=== PATIENT | female | born 1940 | race Caucasian/White ===

== ENCOUNTER → 2017-09-18 20:51 | Outpatient (REF) | payer MEDICARE, SELFPAY ==
[2017-09-18 20:57] LABS: Appearance Urine UA CLEAR; Bilirubin Urine UA NEGATIVE (NEGATIVE); Color Urine UA YELLOW; Glucose Urine UA NEGATIVE (Negative); Ketones Urine UA NEGATIVE (NEGATIVE); Leukocyte Esterase Urine UA 2+ (NEGATIVE); Nitrite Urine UA NEGATIVE (NEGATIVE); Occult Blood Urine UA 3+ (Negative); Protein Urine UA TRACE (Negative); Specific Gravity Urine UA 1.025 (1.000-1.035); Urobilinogen Urine UA 0.2 E.U./dL (0.2)
[2017-09-18 21:18] LABS: RBC Urine 5-10/HPF (0-5/HPF); Squamous Epithelial Cell Urine 0-1 /HPF; WBC Urine 1-5/HPF (0-5/HPF)
[2017-09-18 21:19] LABS: Bacteria Urine Moderate (10-30); Culture Indicated Urine Specimen Cultured
== END ==
LOC: LAB 20:51
PROVIDERS: PCP Family Medicine; Visit Provider Family Medicine
DX: R31.9 Hematuria, unspecified (principal)
CPT/HCPCS: 81001; 87086; 87186

== ENCOUNTER → 2017-10-07 14:57 | Outpatient (REF) | payer MEDICARE, SELFPAY ==
[2017-10-07 15:22] LABS: Appearance Urine UA OTHER; Bilirubin Urine UA NEGATIVE (NEGATIVE); Color Urine UA YELLOW; Glucose Urine UA NEGATIVE (Normal); Ketones Urine UA NEGATIVE (NEGATIVE); Leukocyte Esterase Urine UA TRACE (NEGATIVE); Nitrite Urine UA Negative (Negative); Occult Blood Urine UA 3+ (Negative); Protein Urine UA TRACE (Negative); Specific Gravity Urine UA 1.015 (1.000-1.035); Urobilinogen Urine UA 0.2 E.U./dL (0.2)
[2017-10-07 15:23] LABS: RBC Urine >100/HPF (0-5/HPF)
[2017-10-07 15:24] LABS: Bacteria Urine Few (2-10); Squamous Epithelial Cell Urine 1-5 /HPF; WBC Urine 1-5/HPF (0-5/HPF)
== END ==
LOC: LAB 14:57
PROVIDERS: PCP Family Medicine; Visit Provider Nurse Practitioner Family
DX: N39.0 Urinary tract infection, site not specified (principal); R35.0 Frequency of micturition
CPT/HCPCS: 81001; 87086

== ENCOUNTER → 2017-10-10 08:01 | Outpatient (CLI) | payer MEDICARE, SELFPAY ==
[2017-10-10 09:41] LABS: Add Manual Diff / Slide Review NO; Basophils Percent Auto 0.9 % (0-2); Eosinophils Percent Auto 2.4 % (2-4); Hematocrit 33.9 % (36-46); Lymphocytes Percent Auto 9.4 % (25-40); Mean Corpuscular HGB Conc 32.6 % (30-36); Mean Corpuscular Hemoglobin 26.6 PG (26-34); Mean Corpuscular Volume 81.5 fL (80-100); Monocytes Percent Auto 8.5 % (3-14); Neutrophils Absolute Auto 10000 /uL (3000-5900); Neutrophils Percent Auto 78.8 % (50-75); Platelet Count 331 X10^3/uL (150-400); Red Blood Cell Count 4.16 X10^6/uL (4.0-5.2); Red Cell Distribution Width 16.7 % (11.6-14.8); White Blood Cell Count 12.7 X10^3/uL (4.5-11.0)
[2017-10-10 10:39] LABS: BUN Creatinine Ratio 25.7 (6-22); Blood Urea Nitrogen 36 mg/dL (7-17); Calcium 8.9 mg/dL (8.4-10.2); Carbon Dioxide 27 mmol/L (22-32); Chloride 105 mmol/L (98-107); Estimated Glomerular Filt Rate 36.7 mL/min (>60); Glucose 91 mg/dL (80-110); HEMOLYSIS < 15 (0-50); Potassium 4.1 mmol/L (3.4-5.1); Sodium 143 mmol/L (137-145)
== END ==
PROVIDERS: PCP Family Medicine; Visit Provider Registered Nurse
DX: R31.9 Hematuria, unspecified (principal)
CPT/HCPCS: 36415; 80048; 85025

== ENCOUNTER → 2017-10-15 14:55 | Outpatient (CLI) | payer MEDICARE, SELFPAY ==
--- NOTE | 2017-10-15 | DI.US.S_ITS ---
PROCEDURE: US RENAL COMPLETE INDICATIONS: HEMATURIA TECHNIQUE: Real-time scanning was performed of the kidneys and bladder, with image documentation. COMPARISON: None. FINDINGS: Kidneys: Kidneys are normal in size. Right kidney measures 8.8 cm long; left kidney measures 9.8 cm long. Right renal cortical thickness is 1.3 cm; left renal cortical thickness is 1 point cm. Renal cortical echotexture is normal. No hydronephrosis or nephrolithiasis. Solid isoechoic mass involves the mid to lower pole of the right kidney measuring 5.2 x 4.2 x 4.8 cm. Internal vascularity noted with color flow Doppler.. Bladder: Pre-void bladder volume is 96 mL. Post-void residual is unable to be evaluated. Pre-void images demonstrate no intraluminal masses or stones. On pre-void images, right ureteral jets are noted with color Doppler interrogation. (Of note, ureteral jets may not be detectable in up to 25% of cases due to insufficient differences in specific gravity between ureteral and bladder urine). Miscellaneous: No free pelvic fluid. Cholelithiasis incidentally noted. IMPRESSION: 1. Solid right renal mass is suspicious for renal cell carcinoma. Contrast enhanced CT of the abdomen (renal protocol) is recommended for further evaluation. 2. Cholelithiasis. Dictated by: Td GONZALEZ Interpreted: Kolton Lombardi MD on 10/15/2017 at 15:59 Approved by: Kolton Lombardi M.D. on 10/15/2017 at 17:27
== END ==
PROVIDERS: PCP Family Medicine; Visit Provider Nurse Practitioner Family
DX: R31.9 Hematuria, unspecified (principal); N28.89 Other specified disorders of kidney and ureter
CPT/HCPCS: 76770

== ENCOUNTER → 2017-10-17 08:52 | Outpatient (REF) | payer MEDICARE, SELFPAY ==
[2017-10-17 09:12] LABS: Add Manual Diff / Slide Review NO; Basophils Percent Auto 0.7 % (0-2); Eosinophils Percent Auto 2.5 % (2-4); Hemoglobin 11.1 g/dL (12.0-16.0); Lymphocytes Percent Auto 17.7 % (25-40); Mean Corpuscular HGB Conc 32.7 % (30-36); Mean Corpuscular Hemoglobin 26.6 PG (26-34); Mean Corpuscular Volume 81.5 fL (80-100); Monocytes Percent Auto 7.4 % (3-14); Neutrophils Absolute Auto 7000 /uL (3000-5900); Neutrophils Percent Auto 71.7 % (50-75); Platelet Count 368 X10^3/uL (150-400); Red Blood Cell Count 4.17 X10^6/uL (4.0-5.2); Red Cell Distribution Width 16.5 % (11.6-14.8); White Blood Cell Count 9.7 X10^3/uL (4.5-11.0)
[2017-10-17 09:17] LABS: BUN Creatinine Ratio 32.2 (6-22); Blood Urea Nitrogen 29 mg/dL (7-17); Calcium 9.2 mg/dL (8.4-10.2); Carbon Dioxide 29 mmol/L (22-32); Chloride 106 mmol/L (98-107); Estimated Glomerular Filt Rate > 60.0 mL/min (>60); Glucose 90 mg/dL (80-110); HEMOLYSIS < 15 (0-50); Potassium 3.7 mmol/L (3.4-5.1); Sodium 145 mmol/L (137-145)
== END ==
LOC: LAB 08:52
PROVIDERS: PCP Family Medicine; Visit Provider Internal Medicine
DX: D72.0 Genetic anomalies of leukocytes (principal)
CPT/HCPCS: 36415; 80048; 85025

== ENCOUNTER → 2017-10-19 12:06 | Outpatient (CLI) | payer MEDICARE, SELFPAY ==
--- NOTE | 2017-10-19 | DI.CT.S_ITS ---
PROCEDURE: CT ABDOMEN PELVIS WO/W CON INDICATIONS: RENAL MASS TECHNIQUE: Optional 5 mm thick noncontrast images acquired from the diaphragm to the symphysis pubis. After the administration of intravenous contrast, 5 mm thick images acquired from the diaphragm to the symphysis pubis after a 10-minute delay. 2 mm thick coronal and sagittal reformats were then performed of the kidneys and ureters. For radiation dose reduction, the following was used: automated exposure control, adjustment of mA and/or kV according to patient size. COMPARISON: [facility], , US RENAL COMPLETE, 10/15/2017, 15:26. FINDINGS: Image quality: Excellent. Lung bases: Lung bases are clear. There are 2 adjacent 5 mm calcified granulomata in the left lower lobe. Heart size is normal. Urinary system: The left kidney contains 2 nonobstructing 5 mm calculi in the lower pole collecting system. Several small, partially exophytic nodular densities are present over the posterior margin of the left kidney, the largest measuring 7 mm in diameter on series 2/image 29, too small to characterize. No hydronephrosis. The right kidney contains a 0.7 x 1.9 cm nonobstructing calculus in the lower pole collecting system. Corresponding to the ultrasound finding, there is a large, heterogeneously enhancing mass with central calcification in the lower pole of the right kidney, highly suspect for renal cell carcinoma. The mass measures 4.5 x 5.7 x 5.9 cm. There is mild surrounding fat stranding. The right ring of vein is patent. No hydronephrosis. An 11 mm simple cyst is present at the intersection of the tumor and the lower pole of the right kidney. Other solid organs: Liver is normal in size and enhancement. Gallbladder is full of stones. Biliary system is non dilated. Pancreas enhances normally. Spleen is normal in size and enhancement. Bilateral indeterminate adrenal nodules, largest on the left at 1.1 cm showing noncontrast attenuation of 16. Peritoneum and bowel: Bowel loops demonstrate normal wall thickness and caliber. Surgical sutures are present in the right lower quadrant. Appendix is nonvisualized. No free fluid or air. Nodes and vessels: No retroperitoneal or mesenteric adenopathy by size criteria. Atheromatous aorta and inferior vena cava are normal in size. Abdominal wall: Ventral hernias containing fat and partial loops of bowel superior to the umbilicus. Pelvis: No pathologic free pelvic fluid. No inguinal hernias or adenopathy. Uterus shows apparent endometrial thickening at 16 mm, abnormal for postmenopausal status. Bones: No suspicious bony lesions. Degenerative disc disease L4-5 and L5-S1. Oval 12 mm sclerosis in the left iliac wing, likely bone island. No vertebral body compression fractures. IMPRESSION: 1. Large enhancing mass lower pole right kidney consistent with hypernephroma nearly 6 cm in maximum diameter. No apparent renal vein invasion or lymphadenopathy. 2. Bilateral nephrolithiasis right greater than left. Bilateral renal cysts, those on the left too small to characterize. 3. Cholelithiasis. 4. Apparent abnormal thickening of the endometrium which could represent endometrial hyperplasia or cancer. Recommend pelvic sonography for further evaluation. 5. Calcified granulomata left lower lobe, compatible with prior granulomatous infection. 6. Postoperative changes involving the right hemicolon, correlate with clinical history. 7. Bilateral adrenal nodules, indeterminate. 8. Several supraumbilical ventral hernias. Dictated by: Jonah Berry M.D. on 10/19/2017 at 13:10 Approved by: Jonah Berry M.D. on 10/19/2017 at 13:37
== END ==
PROVIDERS: PCP Family Medicine; Visit Provider Registered Nurse
DX: N20.0 Calculus of kidney (principal); K80.20 Calculus of gallbladder without cholecystitis without obstruction; N85.00 Endometrial hyperplasia, unspecified; K43.9 Ventral hernia without obstruction or gangrene
CPT/HCPCS: 74178; Q9967

== ENCOUNTER → 2017-10-26 10:28 | Outpatient (CLI) | payer MEDICARE, SELFPAY ==
--- NOTE | 2017-10-26 | DI.US.S_ITS ---
PROCEDURE: US PELVIC COMPLETE INDICATIONS: ENDOMETRIAL THICKENING TECHNIQUE: Real-time scanning was performed of the pelvic organs, with image documentation. Additional endovaginal scanning was necessary due to incomplete visualization of the adnexal and endometrial structures by transabdominal scanning. COMPARISON: None. FINDINGS: Transabdominal scanning: Limited scanning through the kidneys shows no hydronephrosis. No pathologic free abdominal or pelvic fluid. Endovaginal scanning: Uterus: Uterus is normal in size at 5.0 x 2.9 x 4.9 cm. The endometrium not well-visualized and cannot be evaluated. 2.1 x 1.7 x 2.1 cm submucosal fibroid. Ovaries: Ovaries not visualized. No adnexal masses seen. IMPRESSION: 2.1 cm submucosal fibroid. Endometrial complex cannot visualize and cannot be evaluated. Dictated by: Td PERALTA Interpreted: Shweta Aceves MD on 10/26/2017 at 13:12 Approved by: Shweta Aceves MD, PhD on 10/26/2017 at 15:51
== END ==
PROVIDERS: PCP Family Medicine; Visit Provider Nurse Practitioner Family
DX: D25.0 Submucous leiomyoma of uterus (principal); R93.8 Abnormal findings on diagnostic imaging of other specified body structures
CPT/HCPCS: 76830; 76856

== ENCOUNTER → 2017-10-30 11:03 | Outpatient (CLI) | payer MEDICARE, SELFPAY ==
[2017-10-30 11:40] LABS: Estimated Glomerular Filt Rate > 60.0 mL/min (>60)
== END ==
PROVIDERS: PCP Family Medicine; Visit Provider Physician Assistant
DX: Z01.812 Encounter for preprocedural laboratory examination (principal)
CPT/HCPCS: 36415; 82565

== ENCOUNTER → 2017-11-02 07:05 | Outpatient (CLI) | payer MEDICARE, SELFPAY ==
--- NOTE | 2017-11-02 | DI.MRI.S_ITS ---
PROCEDURE: MR STROKE Pre- and post-contrast brain MRI, non-contrast brain MR angiogram, pre- and postcontrast neck MR angiogram INDICATIONS: history of cva TECHNIQUE: Brain: Noncontrast axial T1 spin echo, axial T2 fast spin echo, sagittal and axial FLAIR, coronal T2 fast spin echo, axial gradient echo, axial diffusion and ADC through the brain. After the administration of contrast, axial 3D VIBE of the cranial vasculature and brain. Brain MRA: Non-contrast 3-D time of flight MR angiogram, with multiple ymdzhfp-hzdfanlhu-mohbfufeth (MIP) reformats performed. Neck MRA: Axial and sagittal TruFISP through the neck. Coronal dynamic MR angiogram during administration of contrast in the arterial and venous phases, with 3-dimenstional aayhngj-kjqhdagkf-dznokxyffa (MIP) reformats constructed from subtraction images. COMPARISON: None. FINDINGS: Image quality: Excellent. BRAIN: CSF spaces: Ventricles are normal in size and shape. Basal cisterns are patent. No extra-axial fluid collections. Brain: No intracranial bleeds or mass effects. Large chronic appearing right frontal encephalomalacia. Tanner-white matter interface is normal. Diffusion weighted images show no acute ischemic insults. Brainstem appears normal. Normal intravascular flow voids are present. No abnormal intracranial enhancement. Skull and face: Calvarial marrow signal is normal. Orbits appear normal. Sinuses: Sinuses and mastoids are clear. BRAIN MR ANGIOGRAM: Anterior circulation: Intracranial internal carotid arteries are normal in size and enhancement. The flow within the paired anterior cerebral arteries is normal and symmetric. Bilateral atherosclerotic long segment narrowing of the distal M1 segments of the middle cerebral arteries. On the contrast-enhanced images these appear grossly patent without definite occlusion. Posterior circulation: The visualized portions of the vertebral arteries demonstrate normal caliber, and join to form a normal appearing basilar artery. origin of the left posterior cerebral artery although this is only well-seen on the contrast-enhanced source images. The flow within the posterior cerebral arteries is normal and symmetric. No stenoses, occlusions, or aneurysms. NECK MR ANGIOGRAM: Carotids: Great vessels demonstrate a conventional anatomy as they arise from the aortic arch. The origins of the common carotid arteries appear patent. The calibers and courses of both common carotid arteries are normal. The bifurcation regions appear normal bilaterally. The internal carotid arteries demonstrate normal course and caliber. Posterior circulation: High-grade focal narrowing at the origin of the right vertebral artery. The left vertebral artery origin appears patent. There is a dominant left vertebral artery. More superior portions of both vertebral arteries demonstrate normal course and caliber, and join to form a normal appearing basilar artery. Miscellaneous: Subclavian arteries appear patent. Pre-contrast images through the neck show no soft tissue abnormalities. No IMPRESSION: BRAIN MRI: No evidence of acute ischemia. Chronic appearing right frontal lobe encephalomalacia. BRAIN MR ANGIOGRAM: Long segment atherosclerotic narrowing of the distal M1 segments of middle cerebral arteries bilaterally. No definite occlusion. NECK MR ANGIOGRAM: No ICA stenosis. High-grade approximately 90% focal stenosis at the origin of the right vertebral artery. Dominant left vertebral artery Dictated by: Salas Bronson M.D. on 11/02/2017 at 11:47 Approved by: Salas Bronson M.D. on 11/02/2017 at 11:58
== END ==
PROVIDERS: Family Provider Family Medicine; PCP Family Medicine; Visit Provider Physician Assistant
DX: I65.01 Occlusion and stenosis of right vertebral artery (principal); Z86.73 Personal history of transient ischemic attack (TIA), and cerebral infarction without residual deficits; G93.89 Other specified disorders of brain
CPT/HCPCS: 70553; A9579

== ENCOUNTER → 2017-11-04 14:31 | Outpatient (REF) | payer MEDICARE, SELFPAY ==
[2017-11-04 14:47] LABS: Appearance Urine UA CLEAR; Bilirubin Urine UA NEGATIVE (NEGATIVE); Color Urine UA YELLOW; Glucose Urine UA NEGATIVE (Normal); Ketones Urine UA NEGATIVE (NEGATIVE); Leukocyte Esterase Urine UA 1+ (NEGATIVE); Nitrite Urine UA Negative (Negative); Occult Blood Urine UA 2+ (Negative); Protein Urine UA NEGATIVE (Negative); Urobilinogen Urine UA 0.2 E.U./dL (0.2)
[2017-11-04 14:58] LABS: RBC Urine 0-1/HPF (0-5/HPF); WBC Urine 10-30/HPF (0-5/HPF)
[2017-11-04 14:59] LABS: Bacteria Urine Few (2-10); Culture Indicated Urine Specimen Cultured; Squamous Epithelial Cell Urine 1-5 /HPF; Transitional Epi Cells Urine 1-5/HPF (0-5/HPF)
== END ==
LOC: LAB 14:31
PROVIDERS: Family Provider Family Medicine; PCP Family Medicine; Visit Provider Internal Medicine
DX: R41.0 Disorientation, unspecified (principal); R35.0 Frequency of micturition
CPT/HCPCS: 81001; 87086

== ENCOUNTER → 2017-12-19 08:03 | Outpatient (REF) | payer MEDICARE, SELFPAY ==
[2017-12-19 08:32] LABS: Add Manual Diff / Slide Review NO; Basophils Percent Auto 0.6 % (0-2); Eosinophils Percent Auto 3.7 % (2-4); Hematocrit 34.1 % (36-46); Hemoglobin 11.3 g/dL (12.0-16.0); Lymphocytes Percent Auto 19.6 % (25-40); Mean Corpuscular Hemoglobin 27.3 PG (26-34); Mean Corpuscular Volume 82.5 fL (80-100); Monocytes Percent Auto 9.1 % (3-14); Neutrophils Absolute Auto 5300 /uL (3000-5900); Platelet Count 307 X10^3/uL (150-400); Red Blood Cell Count 4.13 X10^6/uL (4.0-5.2); Red Cell Distribution Width 16.8 % (11.6-14.8); White Blood Cell Count 7.9 X10^3/uL (4.5-11.0)
[2017-12-19 08:41] LABS: Hemoglobin A1C% w Est Avg Glu 5.7 % (4.0-6.0)
[2017-12-19 08:57] LABS: Blood Urea Nitrogen 28 mg/dL (7-17); Calcium 9.3 mg/dL (8.4-10.2); Carbon Dioxide 27 mmol/L (22-32); Chloride 105 mmol/L (98-107); Estimated Glomerular Filt Rate > 60.0 mL/min (>60); Glucose 89 mg/dL (80-110); HEMOLYSIS < 15 (0-50); Potassium 4.4 mmol/L (3.4-5.1); Sodium 140 mmol/L (137-145)
[2017-12-19 09:07] LABS: Vitamin D 25 Hydroxy (D3) 25.8 ng/mL (30.0-100.0)
[2017-12-19 09:36] LABS: Vitamin B12 964 pg/mL (239-931)
== END ==
LOC: LAB 08:03
PROVIDERS: Family Provider Family Medicine; PCP Family Medicine; Visit Provider Nurse Practitioner Family
DX: D64.9 Anemia, unspecified (principal); E11.9 Type 2 diabetes mellitus without complications; F03.90 Unspecified dementia, unspecified severity, without behavioral disturbance, psychotic disturbance, mood disturbance, and anxiety
CPT/HCPCS: 36415; 80048; 82306; 82607; 83036; 85025

== ENCOUNTER 2017-12-24 07:31 | Emergency (ER) | payer MEDICARE, SELFPAY ==
--- NOTE | 2017-12-24 07:53 | ED_ITS ---
HPI - Neuro Symptoms/Deficit General Chief Complaint: Neuro Symptoms/Deficit Stated Complaint: SEIZURE OR POTENTIAL STROKE Time Seen by Provider: 12/24/17 07:41 Source: patient and family Mode of arrival: wheelchair Limitations: no limitations History of Present Illness HPI Narrative: Patient is a 77-year-old female who presents with her son with possible seizure. She does have a history of a CVA in February 2017 for which she did receive tPA for. Today he walks as he said her face scrunched up and her eyes fluttered rapidly for 1-2 minutes. During that time she was unresponsive. There is no other shaking. Symptoms now have completely resolved. She the was previously in [place] but since the stroke has moved here. 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 She was worked up for seizures they did not find any. She does take aspirin of 325 daily. Onset (ago): minute(s) Related Data Home Medications Medication Instructions Recorded Confirmed Lactobacillus acidophilus 2 tab PO TID #0 06/25/17 docusate sodium [DOK] 200 mg PO QDAY #0 06/25/17 famotidine 20 mg PO QDAY #0 06/25/17 vancomycin [Vancocin] 250 mg PO TID #0 06/25/17 Previous Rx's Medication Instructions Recorded VITAMIN B12 See Label Instructions PO .COMPLEX 08/28/17 #30 acetaminophen 325 mg capsule 650 mg PO Q4H PRN #60 cap 08/28/17 escitalopram 5 mg tablet 5 mg PO DAILY #30 tab 08/28/17 sulfamethoxazole 800 1 tab PO BID #14 tab 09/21/17 mg-trimethoprim 160 mg tablet amlodipine 2.5 mg tablet 2.5 mg PO QDAY #30 tab 11/15/17 aspirin 325 mg tablet 325 mg PO QDAY #30 tab 11/15/17 atorvastatin 20 mg tablet 20 mg PO QPM #30 tab 11/15/17 carvedilol 3.125 mg tablet 3.125 mg PO BID #60 tab 11/15/17 cholecalciferol (vitamin D3) 2,000 2,000 unit PO DAILY #30 cap 12/20/17 unit capsule levetiracetam [Keppra] 500 mg PO BID #60 tab 12/24/17 Allergies Allergy/AdvReac Type Severity Reaction Status Date / Time No Known Drug Allergies Allergy Verified 12/24/17 07:48 Review of Systems Review of Systems All systems reviewed & are unremarkable except as noted in HPI and below Constitutional Denies chills, Denies fever(s), Denies lethargy and Denies weakness Cardiovascular Denies chest pain, Denies irregular heart rhythm, Denies lightheadedness, Denies palpitations, Denies dyspnea, Denies dyspnea on exertion and Denies orthopnea Respiratory Denies cough, Denies dyspnea, Denies dyspnea on exertion and Denies wheezing Gastrointestinal Gastrointestinal: Denies abdominal pain, Denies change in bowel habits, Denies diarrhea, Denies nausea and Denies vomiting Neurologic Reports system reviewed and no additional complaints, except as docu and Denies weakness Endocrine Denies palpitations Allergic/Immunologic Denies wheezing PFSH Medical History CVA (cerebral vascular accident) (Acute) Dementia (Acute) Hypertension (Acute) Surgical History Status post colectomy Family History Brother Diabetes mellitus Heart disease Hypertension Father Heart disease Hypertension Mother Diabetes mellitus Stroke Exam Initial Vital Signs Initial Vital Signs: Vital Signs Temperature 98.2 F 12/24/17 08:06 Pulse Rate 62 12/24/17 08:06 Respiratory Rate 16 12/24/17 08:06 Blood Pressure 186/66 H 12/24/17 08:06 Pulse Oximetry 100 12/24/17 08:06 GENERAL: Alert well-appearing elderly female HEENT: Head atraumatic,EOMI, pupils reactive, left-sided facial droop, neck is supple no JVD CARDIOVASCULAR: Regular rate and rhythm without murmurs, rubs or gallops. RESPIRATORY: Breath sounds equal bilaterally, no wheezes rales or rhonchi. ABDOMEN: Soft, nontender. Normoactive bowel sounds all 4 quadrants. No guarding or rebound. : No CVA tenderness EXTREMITIES: Normal range of motion, no clubbing or edema. Neurovascularly intact NEUROLOGICAL: Alert and oriented x4.Normal gait and speech. Cranial nerves II through XII grossly intact. Good amrsrc-ak-pawf, good kcio-hl-tttj, strength equal bilaterally, no dysarthria or aphasia, sensation in tact to soft touch bilaterally, no visual changes, no facial droop SKIN: Warm, dry, no laceration, no petechiae, no rashes or lesions. Scores NIH Stroke Scale Level of Conciousness: Alert, keenly responsive Ask month/age: Answers neither question correctly, aphasic, stuporous, coma Open/close eyes, close hand: Performs both tasks correctly Best gaze horizontal: Normal Visual valenzuela: No visual loss Facial palsy: Partial paralysis, total or near total paralysis of lower face ( unchanged) Left arm drift: No drift for full 10 sec Right arm drift: No drift for full 10 sec Left leg drift: No drift for full 10 sec Right leg drift: No drift for full 10 sec Limb ataxia: Absent Sensory on face/arms/legs: Normal, no sensory loss Best language: No aphasia, normal Dysarthria: Normal Extinction or inattention: No abnormality Total NIH Stroke scale score: 4 Course Orders Ordered: ED Orders 12/24/17 07:41 Urine Drug Screen, Rapid Stat EKG-12 Lead Stat 12/24/17 07:55 Complete Blood Count AUTO DIFF Stat Comprehensive Metabolic Panel Stat Creatine Kinase MB Urgent Partial Thromboplastin Time Stat Prolactin Stat Prothrombin Time INR Stat Troponin I Stat 12/24/17 08:18 CT head/brain wo con Stat Discontinued Medications Sodium Chloride (Normal Saline 0.9%) 1,000 mls @ 150 mls/hr IV CONT LUIS ENRIQUE Last Infusion: 12/24/17 11:09 Dose: 150 mls/hr Admin: 12/24/17 08:17 Dose: 150 mls/hr Levetiracetam (Keppra) 500 mg PO NOW ONE Stop: 12/24/17 08:58 Last Admin: 12/24/17 09:20 Dose: 500 mg Lorazepam (Ativan) 0.5 mg IV NOW ONE Stop: 12/24/17 09:26 Last Admin: 12/24/17 09:27 Dose: 0.5 mg Consultations Consultation #1: Dr. gibson, patient's neurologist has been updated on symptoms test results. Recommend starting on Keppra 500 twice a day. Time: 09:06 Vital Signs - 8 hr 12/24/17 08:06 12/24/17 08:23 12/24/17 09:29 Temperature 98.2 F 98.2 F 98.3 F Pulse Rate 62 54 L 55 L Respiratory Rate 16 20 13 Blood Pressure 186/66 H Blood Pressure [Left Arm] 158/77 H 162/63 H Pulse Oximetry 100 98 97 12/24/17 10:00 12/24/17 10:49 12/24/17 11:11 Temperature 98.2 F Pulse Rate 57 L 54 L 56 L Respiratory Rate 18 16 16 Blood Pressure Blood Pressure [Left Arm] 156/62 H 154/67 H 154/67 H Pulse Oximetry 94 100 98 MDM - Neuro Symptoms/Deficit Lab Data Result diagrams: 12/24/17 07:55 12/24/17 07:55 Lab Results 12/24/17 12/24/17 12/24/17 Range/Units 07:55 07:55 07:55 WBC 9.5 (4.5-11.0) X10^3/uL RBC 4.27 (4.0-5.2) X10^6/uL Hgb 11.6 L (12.0-16.0) g/dL Hct 35.3 L (36-46) % MCV 82.5 (80-100) fL MCH 27.1 (26-34) PG MCHC 32.8 (30-36) % RDW 16.1 H (11.6-14.8) % Plt Count 320 (150-400) X10^3/uL Neut % (Auto) 69.0 (50-75) % Lymph % (Auto) 18.1 L (25-40) % Dare % (Auto) 8.7 (3-14) % Eos % (Auto) 3.0 (2-4) % Baso % (Auto) 1.2 (0-2) % Neut # (Auto) 6600 H (3506-0982) /uL PT 12.1 (10.1-12.7) SECONDS INR 1.1 (0.9-1.3) APTT 28 (26.4-36.2) SECONDS Sodium 145 (137-145) mmol/L Potassium 4.6 (3.4-5.1) mmol/L Chloride 105 (98-107) mmol/L Carbon Dioxide 33 H (22-32) mmol/L BUN 28 H (7-17) mg/dL Creatinine 0.80 (0.52-1.04) mg/dL Estimated GFR > 60.0 (>60) mL/min BUN/Creatinine Ratio 35.0 H (6-22) Glucose 95 (80-110) mg/dL Calcium 9.4 (8.4-10.2) mg/dL Total Bilirubin 0.5 (0.2-1.3) mg/dL AST 24 (14-36) IU/L ALT 27 (9-52) IU/L Alkaline Phosphatase 81 (38-126) U/L Troponin I 0.022 (0.01-0.034) ng/mL Total Protein 7.4 (6.3-8.2) g/dL Albumin 3.9 (3.5-5.0) g/dL Globulin 3.5 (1.7-4.1) g/dL Albumin/Globulin Ratio 1.1 (1.0-2.8) Prolactin (3.0-18.6) ng/mL 12/24/17 Range/Units 07:55 WBC (4.5-11.0) X10^3/uL RBC (4.0-5.2) X10^6/uL Hgb (12.0-16.0) g/dL Hct (36-46) % MCV (80-100) fL MCH (26-34) PG MCHC (30-36) % RDW (11.6-14.8) % Plt Count (150-400) X10^3/uL Neut % (Auto) (50-75) % Lymph % (Auto) (25-40) % Dare % (Auto) (3-14) % Eos % (Auto) (2-4) % Baso % (Auto) (0-2) % Neut # (Auto) (7402-4860) /uL PT (10.1-12.7) SECONDS INR (0.9-1.3) APTT (26.4-36.2) SECONDS Sodium (137-145) mmol/L Potassium (3.4-5.1) mmol/L Chloride (98-107) mmol/L Carbon Dioxide (22-32) mmol/L BUN (7-17) mg/dL Creatinine (0.52-1.04) mg/dL Estimated GFR (>60) mL/min BUN/Creatinine Ratio (6-22) Glucose (80-110) mg/dL Calcium (8.4-10.2) mg/dL Total Bilirubin (0.2-1.3) mg/dL AST (14-36) IU/L ALT (9-52) IU/L Alkaline Phosphatase (38-126) U/L Troponin I (0.01-0.034) ng/mL Total Protein (6.3-8.2) g/dL Albumin (3.5-5.0) g/dL Globulin (1.7-4.1) g/dL Albumin/Globulin Ratio (1.0-2.8) Prolactin 29.6 H (3.0-18.6) ng/mL MDM Narrative Medical decision making narrative: Patient had an episode on in the ED with facial twitching. This lasted briefly 1-2 minutes. She was given 0.5 of Ativan. This was prior to her Keppra dose. She was given Keppra and monitored. No further seizure-like activity. She has a neurologist whom I have been in contact with and will follow up. Keppra medication has been faxed to pharmacy and she will receive her 2nd dose this evening at the assisted living. Discharge Plan Departure Patient Disposition: Assisted Living Clinical Impression: Seizure Discharge Date/Time: 12/24/17 11:12 Interventions: ED Discharge Assessment Last Done: 12/24/17 11:12 Instructions: Seizure Disorder -- Adult Activity Restrictions/Additional Instructions: NO DRIVING *You have been diagnosed with likely had a seizure episode today *What to do: Will need to follow up with Neurology in 1 week *Continue to take medications as directed Keppra 500 mg twice a day--Faxed to [facility] in [place] *Follow up with your primary care provider in 2-3 days, call Neurology to schedule appointment *Return to ER if you should have recurrent seizures, it decreasing mental status , weakness or any new, worsening or concerning symptoms Prescriptions: New levetiracetam [Keppra] 500 mg tablet 500 mg PO BID Qty: 60 RF: 0 No Action vancomycin [Vancocin] 250 MG capsule 250 mg PO TID Qty: 0 RF: 0 famotidine 20 MG tablet 20 mg PO QDAY Qty: 0 RF: 0 Lactobacillus acidophilus 1 EACH capsule 2 tab PO TID Qty: 0 RF: 0 docusate sodium [DOK] 100 MG tablet 200 mg PO QDAY Qty: 0 RF: 0 escitalopram oxalate [Lexapro] 5 mg tablet 5 mg PO DAILY Qty: 30 RF: 3 VITAMIN B12 tablet See Label Instructions PO .COMPLEX Qty: 30 RF: 3 acetaminophen 325 mg capsule 650 mg PO Q4H PRN (Reason: fever or pain) Qty: 60 RF: 3 sulfamethoxazole-trimethoprim [Bactrim DS] 800-160 mg tablet 1 tab PO BID Qty: 14 RF: 0 aspirin 325 mg tablet 325 mg PO QDAY Qty: 30 RF: 3 atorvastatin [Lipitor] 20 mg tablet 20 mg PO QPM Qty: 30 RF: 3 carvedilol [Coreg] 3.125 mg tablet 3.125 mg PO BID Qty: 60 RF: 3 amlodipine [Norvasc] 2.5 mg tablet 2.5 mg PO QDAY Qty: 30 RF: 3 cholecalciferol (vitamin D3) 2,000 unit capsule 2,000 unit PO DAILY Qty: 30 RF: 3
[2017-12-24 08:04] LABS: Add Manual Diff / Slide Review NO; Basophils Percent Auto 1.2 % (0-2); Hematocrit 35.3 % (36-46); Hemoglobin 11.6 g/dL (12.0-16.0); Lymphocytes Percent Auto 18.1 % (25-40); Mean Corpuscular HGB Conc 32.8 % (30-36); Mean Corpuscular Hemoglobin 27.1 PG (26-34); Mean Corpuscular Volume 82.5 fL (80-100); Monocytes Percent Auto 8.7 % (3-14); Neutrophils Absolute Auto 6600 /uL (3000-5900); Platelet Count 320 X10^3/uL (150-400); Red Blood Cell Count 4.27 X10^6/uL (4.0-5.2); Red Cell Distribution Width 16.1 % (11.6-14.8); White Blood Cell Count 9.5 X10^3/uL (4.5-11.0)
[2017-12-24 08:06] VITALS: BP 186/66; PULSE 62; RESP 16; TEMP 36.8; O2SAT 100
[2017-12-24] MEDS: SODIUM CHLORIDE 0.9% 1,000 ML 150 ML IV (08:17)
--- NOTE | 2017-12-24 08:18 | DI.CT.S_ITS ---
PROCEDURE: CT HEAD/BRAIN WO CON INDICATIONS: weakness, now resolved, hx of prior cva with MRI documenting stroke at the right temporoparietal region 11/02/17 which was not acute at that time. TECHNIQUE: Noncontrast 4.5 mm thick angled axial sections acquired from the foramen magnum to the vertex, with coronal and sagittal reformats. For radiation dose reduction, the following was used: automated exposure control, adjustment of mA and/or kV according to patient size. COMPARISON: [facility], , MR STROKE, 11/02/2017, 8:30. FINDINGS: Image quality: Excellent. CSF spaces: Basal cisterns are patent. No extra-axial fluid collections. Ventricles are asymmetric in size and shape related to encephalomalacia from the evolving stroke at the right temporoparietal region extending into the frontal lobe margin laterally. No new stroke is found. Brain: No midline shift. No intracranial masses or hemorrhage. Tanner-white matter interface is normal. Skull and face: Calvarium and visualized facial bones are intact, without suspicious lesions. Sinuses: Visualized sinuses and mastoids are clear. IMPRESSION: No new stroke is identified. Evolution of a previously present area of encephalomalacia measuring up to 6 cm craniocaudad, 4 cm transverse and approximately 5 cm AP present on prior MRI from October of this year. The stroke did not appear acute in October, and presumably there are prior imaging studies from the acute/subacute phase. No intracranial hemorrhage. Source of new symptoms is not found. Dictated by: Hipolito Haider M.D. on 12/24/2017 at 8:25 Approved by: Hipolito Haider M.D. on 12/24/2017 at 8:29
[2017-12-24 08:20] LABS: INR 1.1 (0.9-1.3); Prothrombin Time 12.1 SECONDS (10.1-12.7)
[2017-12-24 08:23] VITALS: BP 158/77; PULSE 54; RESP 20; TEMP 36.8; O2SAT 98
[2017-12-24 08:23] LABS: PTT Partial Thromboplastin Tim 28 SECONDS (26.4-36.2)
[2017-12-24 08:24] LABS: Alanine Aminotransferase 27 IU/L (9-52); Albumin 3.9 g/dL (3.5-5.0); Albumin Globulin Ratio 1.1 (1.0-2.8); Alkaline Phosphatase 81 U/L (38-126); Aspartate Aminotransferase 24 IU/L (14-36); Bilirubin Total 0.5 mg/dL (0.2-1.3); Blood Urea Nitrogen 28 mg/dL (7-17); Calcium 9.4 mg/dL (8.4-10.2); Carbon Dioxide 33 mmol/L (22-32); Chloride 105 mmol/L (98-107); Estimated Glomerular Filt Rate > 60.0 mL/min (>60); Globulin 3.5 g/dL (1.7-4.1); Glucose 95 mg/dL (80-110); HEMOLYSIS < 15 (0-50); Potassium 4.6 mmol/L (3.4-5.1); Sodium 145 mmol/L (137-145); Total Protein 7.4 g/dL (6.3-8.2)
[2017-12-24 08:36] LABS: Troponin I 0.022 ng/mL (0.01-0.034)
[2017-12-24 08:41] LABS: Prolactin 29.6 ng/mL (3.0-18.6)
--- NOTE | 2017-12-24 08:43 | PC.NURSE ---
0731/ no code stroke called per provider.
[2017-12-24] MEDS: levETIRAcetam 250 MG TABLET 500 MG PO (09:20)
--- NOTE | 2017-12-24 09:23 | PC.NURSE ---
entered room to check on pt. Pt having seizure like activity in face. Face drooping and mild shaking in face. MD made aware and came to bedside. Activity lasting approx. 60 seconds. Pt is confused but cooperative and able to follow all commands and has returned to baseline. Son at bedside with pt encouraging her to rest.
[2017-12-24] MEDS: LORazepam 2 MG/ML SYRINGE 0.5 MG IV (09:27)
[2017-12-24 09:29] VITALS: BP 162/63; PULSE 55; RESP 13; TEMP 36.8; O2SAT 97
[2017-12-24 10:00] VITALS: BP 156/62; PULSE 57; RESP 18; O2SAT 94
[2017-12-24 10:49] VITALS: BP 154/67; PULSE 54; RESP 16; O2SAT 100
[2017-12-24 11:11] VITALS: BP 154/67; PULSE 56; RESP 16; TEMP 36.8; O2SAT 98
== END 2017-12-24 11:12 ==
PROVIDERS: Emergency Provider Emergency Medicine; Family Provider Family Medicine; PCP Family Medicine
DX: R56.9 Unspecified convulsions (principal)
CPT/HCPCS: 36591; 70450; 80053; 82553; 82962; 84146; 84484; 85025; 85610; 85730; 93005; 93010; 96361; 96374; 99284; 99285; 99291; J2060

== ENCOUNTER 2017-12-26 03:39 | Emergency (ER) | payer MEDICARE, SELFPAY ==
--- NOTE | 2017-12-26 04:02 | ED_ITS ---
HPI - Chest Pain General Chief Complaint: Chest Pain Stated Complaint: Chest Pain Time Seen by Provider: 12/26/17 03:45 Source: family Mode of arrival: ambulatory Limitations: no limitations History of Present Illness HPI narrative: The patient was brought to the emergency department from her care facility after being found to poke her chest and say ow. Patient is a poor historian, secondary to dementia, and it is not clear exactly what she was feeling. According to son, patient has not been indicating any chest pain while he has been here. Son denies any decline in mental status the patient's part. Patient has been seen multiple times recently for various issues. She has not had any fever or cough. No obvious shortness of breath. No vomiting. No falls or other trauma. MD complaint: chest pain Onset (ago): minute(s) Duration: other ( Unknown duration; now appears to have resolved.) Onset: during rest Pain location: left chest Severity: moderate ( Uncertain of exact severity. Patient is not able to use the pain scale.) Quality: other ( Unable to specify.) Pain radiation: other ( Unable to specify.) Relieving factors: other ( Unable to specify.) Exacerbating factors: other ( Unable to specify.) Context: other ( No recent illness, recent surgery, recent immobilization, recent travel, recent trauma, or history of DVT /PE.) Associated symptoms: other ( Patient has had no other complaints.) Treatments prior to arrival chest pain: none Related Data Home Medications Medication Instructions Recorded Confirmed Lactobacillus acidophilus 2 tab PO TID #0 06/25/17 docusate sodium [DOK] 200 mg PO QDAY #0 06/25/17 famotidine 20 mg PO QDAY #0 06/25/17 vancomycin [Vancocin] 250 mg PO TID #0 06/25/17 Previous Rx's Medication Instructions Recorded VITAMIN B12 See Label Instructions PO .COMPLEX 08/28/17 #30 acetaminophen 325 mg capsule 650 mg PO Q4H PRN #60 cap 08/28/17 escitalopram 5 mg tablet 5 mg PO DAILY #30 tab 08/28/17 sulfamethoxazole 800 1 tab PO BID #14 tab 09/21/17 mg-trimethoprim 160 mg tablet amlodipine 2.5 mg tablet 2.5 mg PO QDAY #30 tab 11/15/17 aspirin 325 mg tablet 325 mg PO QDAY #30 tab 11/15/17 atorvastatin 20 mg tablet 20 mg PO QPM #30 tab 11/15/17 carvedilol 3.125 mg tablet 3.125 mg PO BID #60 tab 11/15/17 cholecalciferol (vitamin D3) 2,000 2,000 unit PO DAILY #30 cap 12/20/17 unit capsule levetiracetam [Keppra] 500 mg PO BID #60 tab 12/24/17 lacosamide [Vimpat] 100 mg PO BID #60 tab 01/02/18 Allergies Allergy/AdvReac Type Severity Reaction Status Date / Time No Known Drug Allergies Allergy Verified 12/24/17 07:48 Review of Systems Review of Systems unobtainable due to mental condition ( Dementia) [facility] Medical History CVA (cerebral vascular accident) (Acute) Dementia (Acute) Hypertension (Acute) Comment: no smoking alcohol or drugs. Exam Initial Vital Signs Initial Vital Signs: Vital Signs Temperature 98.1 F 12/26/17 04:16 Pulse Rate 57 L 12/26/17 04:16 Respiratory Rate 17 12/26/17 04:16 Blood Pressure 150/69 H 12/26/17 04:16 Pulse Oximetry 98 12/26/17 04:16 Const General: cooperative and well developed Nutritional Appearance: well nourished Orientation: alert, awake and not confused [facility] Head: normocephalic and atraumatic Ears: external ears normal Nose: external nose normal and No nasal discharge Face and sinus: face symmetric and No dry mucous membranes Mouth: oral mucosae normal and moist mucous membranes Eyes General: appearance normal, both eyes and all related structures Eyelids: eyelids normal Conjunctivae: conjunctivae normal Sclera: sclerae normal Pupils: PERRL EOM: EOM intact bilaterally Neck Neck: normal visual inspection, trachea midline, No lymphadenopathy, No midline deformity and No JVD Lymphatic: No lymphedema Chest Chest: normal inspection of the chest Resp Effort & Inspection: normal respiratory effort, able to speak in complete sentences, no respiratory distress and no use of accessory muscles Auscultation: clear to auscultation bilaterally, no rales, no rhonchi and no wheezes Cardio Rate: regular rate Rhythm: regular rhythm Heart Sounds: no click, no gallops, no murmurs and no rubs Pulses: normal peripheral pulses GI Inspection: non-distended Palpation: soft, no hepatosplenomegaly, No guarding, No pulsatile mass and No tender Auscultation: normal bowel sounds Back/Spine/Pelvis Back: No CVA tenderness Cervical Spine: cervical ROM normal and No pain with cervical ROM Thoracic/Lumbar Spine: thoracic and lumbar spine normal to inspection Skin General: no rashes or lesions noted, No jaundice and No petechiae Neuro General: alert, awake and no focal motor deficits Speech: speech normal Motor: other ( Moves all 4 extremities equally) Sensory Exam: no sensory deficits noted Extrem General: full ROM, no clubbing, cyanosis or edema, no pedal edema and no calf tenderness Psych Appearance: well kempt Mental Status: mental status grossly normal Attitude: cooperative Thought Content: normal and suicidality Judgment: judgment good Course Hospital Course: I discussed with the son that it is difficult to know exactly what the patient is feeling or was feeling, and that even with workup, we may not know. We have discussed the potential serious causes of pain though most of these I feel are unlikely based on the presentation and the patient's well appearance and stable vital signs. EKG was done per protocol upon patient's arrival, and was unremarkable. Son stated he would prefer that we keep the workup to just an EKG and chest x-ray. Chest x-ray was done and found to be unremarkable for acute pathology, as well. I did feel the patient was stable for discharge home the complaints of chest pain the son is comfortable with this plan. We have discussed the the usual indications for return. Orders Ordered: ED Orders 12/26/17 EKG-12 Lead Routine MDM - Chest Pain Medical Records Data Attestation: I reviewed the patient's medical records. ECG Data Attestation: I personally reviewed and interpreted this ECG as follows: ( No acute abnormalities. No STEMI.) Discharge Plan Departure Patient Disposition: Home Clinical Impression: Chest wall pain Discharge Date/Time: 12/26/17 04:51 Interventions: ED Discharge Assessment Last Done: 12/26/17 04:51 Instructions: DI for Atypical Chest Pain Activity Restrictions/Additional Instructions: Neither the EKG nor the chest x-ray show acute abnormalities. Janey's chest pain is most likely coming from the wall of her chest, and as such, will pass on its own without intervention. If she develops congested cough, fever, or shortness of breath, please have her re-evaluated. Prescriptions: No Action vancomycin [Vancocin] 250 MG capsule 250 mg PO TID Qty: 0 RF: 0 famotidine 20 MG tablet 20 mg PO QDAY Qty: 0 RF: 0 Lactobacillus acidophilus 1 EACH capsule 2 tab PO TID Qty: 0 RF: 0 docusate sodium [DOK] 100 MG tablet 200 mg PO QDAY Qty: 0 RF: 0 escitalopram oxalate [Lexapro] 5 mg tablet 5 mg PO DAILY Qty: 30 RF: 3 VITAMIN B12 tablet See Label Instructions PO .COMPLEX Qty: 30 RF: 3 acetaminophen 325 mg capsule 650 mg PO Q4H PRN (Reason: fever or pain) Qty: 60 RF: 3 sulfamethoxazole-trimethoprim [Bactrim DS] 800-160 mg tablet 1 tab PO BID Qty: 14 RF: 0 aspirin 325 mg tablet 325 mg PO QDAY Qty: 30 RF: 3 atorvastatin [Lipitor] 20 mg tablet 20 mg PO QPM Qty: 30 RF: 3 carvedilol [Coreg] 3.125 mg tablet 3.125 mg PO BID Qty: 60 RF: 3 amlodipine [Norvasc] 2.5 mg tablet 2.5 mg PO QDAY Qty: 30 RF: 3 cholecalciferol (vitamin D3) 2,000 unit capsule 2,000 unit PO DAILY Qty: 30 RF: 3 levetiracetam [Keppra] 500 mg tablet 500 mg PO BID Qty: 60 RF: 0 lacosamide [Vimpat] 100 mg tablet 100 mg PO BID Qty: 60 RF: 0 Referrals: Enoc,Shirley, [Primary Care Provider] - (Please follow up, as needed.)
--- NOTE | 2017-12-26 04:13 | DI.RAD.S_ITS ---
PROCEDURE: XR CHEST 1V INDICATIONS: chest pain TECHNIQUE: One view of the chest was acquired. COMPARISON: None. FINDINGS: Surgical changes and devices: None. Lungs and pleura: 9 mm left apical pulmonary nodule. Left basilar atelectasis. Mediastinum: Mediastinal contours appear normal. Heart size is normal. Bones and chest wall: No suspicious bony lesions. Overlying soft tissues appear unremarkable. IMPRESSION: 1. No radiographic etiology for the patient's clinically apparent chest pain. 2. New 9 mm left apical pulmonary nodule. Recommend chest CT for further evaluation. Dictated by: Camron White M.D. on 12/26/2017 at 8:32 Approved by: Camron White M.D. on 12/26/2017 at 8:33
[2017-12-26 04:16] VITALS: BP 150/69; PULSE 57; RESP 17; TEMP 36.7; O2SAT 98
[2017-12-26 04:49] VITALS: BP 142/84; PULSE 62; RESP 16; O2SAT 98
== END 2017-12-26 04:51 | disposition home or self-care (01) ==
PROVIDERS: Emergency Provider Emergency Medicine; Family Provider Family Medicine; PCP Family Medicine
DX: R07.89 Other chest pain (principal)
CPT/HCPCS: 71045; 93005; 93010; 99282; 99284

== ENCOUNTER 2018-01-02 06:20 | Emergency (ER) | payer MEDICARE, SELFPAY ==
--- NOTE | 2018-01-02 06:34 | ED.SEIZURE ---
HPI - Seizure <Renetta Bain MD - Last Filed: 01/09/18 08:54> General Chief Complaint: Neuro Symptoms/Deficit Stated Complaint: son states having seizure Time Seen by Provider: 01/02/18 06:25 Source: family Mode of arrival: wheelchair Limitations: no limitations History of Present Illness HPI Narrative: Patient's son states that patient was recently switched from Keppra to Lamictal for seizure control. She had a breakthrough seizure this morning, and has not been able to speak further in the 30 min since. Son states this is longer than her postictal phase normally lasts, and the patient was concerned she may be having a stroke. Patient is not able to answer other than yes or no questions, and she can only nod or shake her head. Patient has had multiple recent visits to our emergency department from her assisted living facility at [facility]. complaint: seizure Onset (ago): minute(s) Description of Episode: loss of consciousness and tonic-clonic movement Duration of episode: 1 -: minutes(s) Witnessed: yes - by other Trauma: No Seizure History: known seizure disorder Place: home Possible Precipitating Event: none Associated symptoms: other ( aphasia) Treatments prior to arrival: none Related Data Home Medications Medication Instructions Recorded Confirmed Lactobacillus acidophilus 2 tab PO TID #0 06/25/17 docusate sodium [DOK] 200 mg PO QDAY #0 06/25/17 famotidine 20 mg PO QDAY #0 06/25/17 vancomycin [Vancocin] 250 mg PO TID #0 06/25/17 Previous Rx's Medication Instructions Recorded VITAMIN B12 See Label Instructions PO .COMPLEX 08/28/17 #30 acetaminophen 325 mg capsule 650 mg PO Q4H PRN #60 cap 08/28/17 escitalopram 5 mg tablet 5 mg PO DAILY #30 tab 08/28/17 sulfamethoxazole 800 1 tab PO BID #14 tab 09/21/17 mg-trimethoprim 160 mg tablet amlodipine 2.5 mg tablet 2.5 mg PO QDAY #30 tab 11/15/17 aspirin 325 mg tablet 325 mg PO QDAY #30 tab 11/15/17 atorvastatin 20 mg tablet 20 mg PO QPM #30 tab 11/15/17 carvedilol 3.125 mg tablet 3.125 mg PO BID #60 tab 11/15/17 cholecalciferol (vitamin D3) 2,000 2,000 unit PO DAILY #30 cap 12/20/17 unit capsule levetiracetam [Keppra] 500 mg PO BID #60 tab 12/24/17 lacosamide [Vimpat] 100 mg PO BID #60 tab 01/02/18 Allergies Allergy/AdvReac Type Severity Reaction Status Date / Time No Known Drug Allergies Allergy Verified 12/24/17 07:48 Review of Systems <Renetta Bain MD - Last Filed: 01/09/18 08:54> Review of Systems unobtainable due to mental condition Exam <Renetta Bain MD - Last Filed: 01/09/18 08:54> Initial Vital Signs Initial Vital Signs: Vital Signs Pulse Rate 59 L 01/02/18 09:09 Respiratory Rate 17 01/02/18 09:09 Blood Pressure 151/47 H 01/02/18 09:09 Pulse Oximetry 98 01/02/18 09:09 Const General: cooperative and well developed Nutritional Appearance: well nourished Orientation: alert, awake, oriented x3 and not confused [facility] Head: normocephalic and atraumatic Ears: external ears normal Nose: external nose normal and No nasal discharge Face and sinus: face symmetric and No dry mucous membranes Mouth: oral mucosae normal and moist mucous membranes Eyes General: appearance normal, both eyes and all related structures Eyelids: eyelids normal Conjunctivae: conjunctivae normal Sclera: sclerae normal Pupils: PERRL EOM: EOM intact bilaterally Neck Neck: normal visual inspection, trachea midline, No lymphadenopathy, No midline deformity and No JVD Lymphatic: No lymphedema Chest Chest: normal inspection of the chest Resp Effort & Inspection: normal respiratory effort, able to speak in complete sentences, no respiratory distress and no use of accessory muscles Auscultation: clear to auscultation bilaterally, no rales, no rhonchi and no wheezes Cardio Rate: regular rate Rhythm: regular rhythm Heart Sounds: no click, no gallops, no murmurs and no rubs Pulses: normal peripheral pulses GI Inspection: non-distended Palpation: soft, no hepatosplenomegaly, No guarding, No pulsatile mass and No tender Auscultation: normal bowel sounds Back/Spine/Pelvis Back: No CVA tenderness Cervical Spine: cervical ROM normal and No pain with cervical ROM Thoracic/Lumbar Spine: thoracic and lumbar spine normal to inspection Skin General: no rashes or lesions noted, No jaundice and No petechiae Neuro General: alert, oriented x3, gait normal and no focal motor deficits Speech: speech normal Extrem General: full ROM, no clubbing, cyanosis or edema, no pedal edema and no calf tenderness Psych Appearance: well kempt Mental Status: mental status grossly normal Attitude: cooperative Thought Content: normal and suicidality Judgment: judgment good <Laurel Hall DO - Last Filed: 01/02/18 10:08> Initial Vital Signs Initial Vital Signs: Vital Signs Pulse Rate 59 L 01/02/18 09:09 Respiratory Rate 17 01/02/18 09:09 Blood Pressure 151/47 H 01/02/18 09:09 Pulse Oximetry 98 01/02/18 09:09 Course <Renetta Bain MD - Last Filed: 01/09/18 08:54> Hospital Course: I did initiate a workup on this patient, including head CT. I have signed the patient out to Dr. Hall, pending CT scan and re-evaluation with final disposition. Orders Ordered: ED Orders 01/02/18 06:35 CT head/brain wo con Stat EKG-12 Lead Stat 01/02/18 07:15 Complete Blood Count AUTO DIFF Stat Comprehensive Metabolic Panel Stat Partial Thromboplastin Time Stat Prothrombin Time INR Stat Troponin I Stat Vital Signs - 8 hr 01/02/18 09:09 Pulse Rate 59 L Respiratory Rate 17 Blood Pressure [Left Arm] 151/47 H Pulse Oximetry 98 <Laurel Hall DO - Last Filed: 01/02/18 10:08> Orders Ordered: ED Orders 01/02/18 06:35 CT head/brain wo con Stat EKG-12 Lead Stat 01/02/18 07:15 Complete Blood Count AUTO DIFF Stat Comprehensive Metabolic Panel Stat Partial Thromboplastin Time Stat Prothrombin Time INR Stat Troponin I Stat Vital Signs - 8 hr 01/02/18 09:09 Pulse Rate 59 L Respiratory Rate 17 Blood Pressure [Left Arm] 151/47 H Pulse Oximetry 98 MDM - Seizure <Renetta Bain MD - Last Filed: 01/09/18 08:54> Lab Data Result diagrams: 01/02/18 07:15 01/02/18 07:15 Lab Results 01/02/18 01/02/18 01/02/18 Range/Units 07:15 07:15 07:15 WBC 10.5 (4.5-11.0) X10^3/uL RBC 4.11 (4.0-5.2) X10^6/uL Hgb 11.1 L (12.0-16.0) g/dL Hct 34.1 L (36-46) % MCV 83.1 (80-100) fL MCH 26.9 (26-34) PG MCHC 32.4 (30-36) % RDW 15.4 H (11.6-14.8) % Plt Count 315 (150-400) X10^3/uL Neut % (Auto) 72.7 (50-75) % Lymph % (Auto) 15.2 L (25-40) % [place] % (Auto) 8.2 (3-14) % Eos % (Auto) 2.9 (2-4) % Baso % (Auto) 1.0 (0-2) % Neut # (Auto) 7700 H (7089-9896) /uL PT 11.6 (10.1-12.7) SECONDS INR 1.1 (0.9-1.3) APTT 34 D (26.4-36.2) SECONDS Sodium 144 (137-145) mmol/L Potassium 4.6 (3.4-5.1) mmol/L Chloride 105 (98-107) mmol/L Carbon Dioxide 34 H (22-32) mmol/L BUN 30 H (7-17) mg/dL Creatinine 0.90 (0.52-1.04) mg/dL Estimated GFR > 60.0 (>60) mL/min BUN/Creatinine Ratio 33.3 H (6-22) Glucose 95 (80-110) mg/dL Calcium 9.3 (8.4-10.2) mg/dL Total Bilirubin 0.5 (0.2-1.3) mg/dL AST 36 (14-36) IU/L ALT 41 (9-52) IU/L Alkaline Phosphatase 77 (38-126) U/L Troponin I 0.019 (0.01-0.034) ng/mL Total Protein 6.9 (6.3-8.2) g/dL Albumin 3.6 (3.5-5.0) g/dL Globulin 3.3 (1.7-4.1) g/dL Albumin/Globulin Ratio 1.1 (1.0-2.8) <Laurel Hall, DO - Last Filed: 01/02/18 10:08> Lab Data Lab Results 01/02/18 01/02/18 01/02/18 Range/Units 07:15 07:15 07:15 WBC 10.5 (4.5-11.0) X10^3/uL RBC 4.11 (4.0-5.2) X10^6/uL Hgb 11.1 L (12.0-16.0) g/dL Hct 34.1 L (36-46) % MCV 83.1 (80-100) fL MCH 26.9 (26-34) PG MCHC 32.4 (30-36) % RDW 15.4 H (11.6-14.8) % Plt Count 315 (150-400) X10^3/uL Neut % (Auto) 72.7 (50-75) % Lymph % (Auto) 15.2 L (25-40) % [place] % (Auto) 8.2 (3-14) % Eos % (Auto) 2.9 (2-4) % Baso % (Auto) 1.0 (0-2) % Neut # (Auto) 7700 H (7334-5041) /uL PT 11.6 (10.1-12.7) SECONDS INR 1.1 (0.9-1.3) APTT 34 D (26.4-36.2) SECONDS Sodium 144 (137-145) mmol/L Potassium 4.6 (3.4-5.1) mmol/L Chloride 105 (98-107) mmol/L Carbon Dioxide 34 H (22-32) mmol/L BUN 30 H (7-17) mg/dL Creatinine 0.90 (0.52-1.04) mg/dL Estimated GFR > 60.0 (>60) mL/min BUN/Creatinine Ratio 33.3 H (6-22) Glucose 95 (80-110) mg/dL Calcium 9.3 (8.4-10.2) mg/dL Total Bilirubin 0.5 (0.2-1.3) mg/dL AST 36 (14-36) IU/L ALT 41 (9-52) IU/L Alkaline Phosphatase 77 (38-126) U/L Troponin I 0.019 (0.01-0.034) ng/mL Total Protein 6.9 (6.3-8.2) g/dL Albumin 3.6 (3.5-5.0) g/dL Globulin 3.3 (1.7-4.1) g/dL Albumin/Globulin Ratio 1.1 (1.0-2.8) Imaging Data CT scan - head: Radiologist's impression: PROCEDURE: CT HEAD/BRAIN WO CON INDICATIONS: 77 year-old woman with history of stroke suffered seizure. TECHNIQUE: Noncontrast 4.5 mm thick angled axial sections acquired from the foramen magnum to the vertex, with coronal and sagittal reformats. For radiation dose reduction, the following was used: automated exposure control, adjustment of mA and/or kV according to patient size. COMPARISON: [facility], MR, MR STROKE, 11/02/2017, 8:30. [facility], CT, CT HEAD/BRAIN WO CON, 12/24/2017, 8:01. FINDINGS: Image quality: Excellent. CSF spaces: Basal cisterns are patent. No extra-axial fluid collections. The ventricles are symmetric in size and shape. Brain: There is encephalomalacia in the right frontal lobe consistent with old infarct. Compared with the prior exams, there is no significant change. An old lacunar infarct in the left thalamus. No intracranial bleeds or masses. There is cerebral volume loss for age, with resultant ventricular and sulcal prominence. There are periventricular and deep white matter chronic small vessel ischemic changes. There is intracranial internal carotid artery atherosclerosis. Skull and face: Calvarium and visualized facial bones appear intact, without suspicious lesions. Sinuses: Visualized sinuses and mastoids are clear. IMPRESSION: 1. No acute intracranial abnormalities. 2. 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 3. Cerebral volume loss and chronic microvascular ischemic changes. No significant discrepancy with the acute care physical therapist radiology preliminary report. Dictated by: Fallon Phillips M.D. on 01/02/2018 at 7:26 MDM Narrative Medical decision making narrative: Patient has been seen evaluated by myself. She has returned back to her baseline no longer has aphasic. I have discussed case with neurologist Dr. gibson who suggests Lamictal is not at therapeutic level and recommend adding Vimpat. I have faxed a been tapped with a wet signature to his long-term [facility] pharmacy. She will start it today. Discharge Plan Departure Patient Disposition: Assisted Living Clinical Impression: Seizure Discharge Date/Time: 01/02/18 09:53 Interventions: ED Discharge Assessment Last Done: 01/02/18 09:52 Instructions: DI for Seizure Disorder -- Adult Activity Restrictions/Additional Instructions: *You have been diagnosed with Breakthrough seizure *What to do: Lamictal is not yet therapeutic Neurology recommend adding Vimpat *Continue to take medications as directed Vimpat 100 mg twice a day has been faxed to pharmacy *Follow up with your primary care provider in 2-3 days follow up with Neurology as scheduled *Return to ER if you should have breakthrough seizures, slurring of speech weakness, or any new, worsening or concerning symptoms Prescriptions: New lacosamide [Vimpat] 100 mg tablet 100 mg PO BID Qty: 60 RF: 0 No Action vancomycin [Vancocin] 250 MG capsule 250 mg PO TID Qty: 0 RF: 0 famotidine 20 MG tablet 20 mg PO QDAY Qty: 0 RF: 0 Lactobacillus acidophilus 1 EACH capsule 2 tab PO TID Qty: 0 RF: 0 docusate sodium [DOK] 100 MG tablet 200 mg PO QDAY Qty: 0 RF: 0 escitalopram oxalate [Lexapro] 5 mg tablet 5 mg PO DAILY Qty: 30 RF: 3 VITAMIN B12 tablet See Label Instructions PO .COMPLEX Qty: 30 RF: 3 acetaminophen 325 mg capsule 650 mg PO Q4H PRN (Reason: fever or pain) Qty: 60 RF: 3 sulfamethoxazole-trimethoprim [Bactrim DS] 800-160 mg tablet 1 tab PO BID Qty: 14 RF: 0 aspirin 325 mg tablet 325 mg PO QDAY Qty: 30 RF: 3 atorvastatin [Lipitor] 20 mg tablet 20 mg PO QPM Qty: 30 RF: 3 carvedilol [Coreg] 3.125 mg tablet 3.125 mg PO BID Qty: 60 RF: 3 amlodipine [Norvasc] 2.5 mg tablet 2.5 mg PO QDAY Qty: 30 RF: 3 cholecalciferol (vitamin D3) 2,000 unit capsule 2,000 unit PO DAILY Qty: 30 RF: 3 levetiracetam [Keppra] 500 mg tablet 500 mg PO BID Qty: 60 RF: 0 Referrals: Shirley Stubbs DO [Primary Care Provider] - Tez Gibson MD [Non-Staff] -
--- NOTE | 2018-01-02 07:15 | PC.NURSE ---
Attempts for IV access x4. Unsuccessful
[2018-01-02 07:29] LABS: Add Manual Diff / Slide Review NO; Eosinophils Percent Auto 2.9 % (2-4); Hematocrit 34.1 % (36-46); Hemoglobin 11.1 g/dL (12.0-16.0); Lymphocytes Percent Auto 15.2 % (25-40); Mean Corpuscular HGB Conc 32.4 % (30-36); Mean Corpuscular Hemoglobin 26.9 PG (26-34); Mean Corpuscular Volume 83.1 fL (80-100); Monocytes Percent Auto 8.2 % (3-14); Neutrophils Absolute Auto 7700 /uL (3000-5900); Neutrophils Percent Auto 72.7 % (50-75); Platelet Count 315 X10^3/uL (150-400); Red Blood Cell Count 4.11 X10^6/uL (4.0-5.2); Red Cell Distribution Width 15.4 % (11.6-14.8); White Blood Cell Count 10.5 X10^3/uL (4.5-11.0)
[2018-01-02 07:34] LABS: INR 1.1 (0.9-1.3); Prothrombin Time 11.6 SECONDS (10.1-12.7)
[2018-01-02 07:37] LABS: PTT Partial Thromboplastin Tim 34 SECONDS (26.4-36.2)
[2018-01-02 07:38] LABS: Alanine Aminotransferase 41 IU/L (9-52); Albumin 3.6 g/dL (3.5-5.0); Albumin Globulin Ratio 1.1 (1.0-2.8); Alkaline Phosphatase 77 U/L (38-126); Aspartate Aminotransferase 36 IU/L (14-36); BUN Creatinine Ratio 33.3 (6-22); Bilirubin Total 0.5 mg/dL (0.2-1.3); Blood Urea Nitrogen 30 mg/dL (7-17); Calcium 9.3 mg/dL (8.4-10.2); Carbon Dioxide 34 mmol/L (22-32); Chloride 105 mmol/L (98-107); Estimated Glomerular Filt Rate > 60.0 mL/min (>60); Globulin 3.3 g/dL (1.7-4.1); Glucose 95 mg/dL (80-110); HEMOLYSIS < 15 (0-50); Potassium 4.6 mmol/L (3.4-5.1); Sodium 144 mmol/L (137-145); Total Protein 6.9 g/dL (6.3-8.2)
[2018-01-02 07:50] LABS: Troponin I 0.019 ng/mL (0.01-0.034)
[2018-01-02 09:09] VITALS: BP 151/47; PULSE 59; RESP 17; O2SAT 98
== END 2018-01-02 09:53 ==
PROVIDERS: Emergency Medicine; Emergency Provider Emergency Medicine; Family Provider Family Medicine; PCP Family Medicine
DX: R56.9 Unspecified convulsions (principal)
CPT/HCPCS: 36591; 70450; 80053; 84484; 85025; 85610; 85730; 93005; 93010; 99282; 99285; 99291

== ENCOUNTER 2018-01-10 17:47 | Emergency (ER) | payer MEDICARE, SELFPAY ==
[2018-01-10 18:46] VITALS: BP 106/47; PULSE 57; RESP 17; TEMP 36.4; O2SAT 99
--- NOTE | 2018-01-10 19:03 | ED.SEIZURE ---
HPI - Seizure General Chief Complaint: Seizure Stated Complaint: SEIZURE ACTIVITY, JUST NOT FEELING WELL Time Seen by Provider: 01/10/18 18:05 Source: patient and family Mode of arrival: ambulatory Limitations: altered mental status History of Present Illness HPI Narrative: 77-year-old female with history stroke 1 year ago and recent diagnosis seizures presents to the emergency department with a chief complaint of 16 falls and generalized weakness over the past day or 2. She was in a relatively normal state of health until urine half ago when she had her stroke at which point her son moved her to a local assisted living facility. She can stand and get around with significant assistance but usually uses a wheelchair. She has become increasingly demented but is conversive at baseline, but son mentions she will frequently ?checked out?. Patient's has been under the care of a local neurologist for evaluation of new onset padded mall seizures and she was initiated on Keppra but had a significant reaction at which point she was changed over to Lamictal. She had increasing episodes of these partial complex seizures and had lacosamide added to her regimen. She had multiple falls over the course of the past day or 2, many of which were thought due to postictal phases. She presents to the emergency department for evaluation of this change in her clinical status. MD complaint: seizure Onset (ago): hour(s) Description of Episode: post-event confusion -: second(s) Witnessed: yes - by bystander Trauma: No Seizure History: known seizure disorder Place: home Possible Precipitating Event: none Associated symptoms: denies other symptoms Related Data Home Medications Medication Instructions Recorded Confirmed Lactobacillus acidophilus 2 tab PO TID #0 06/25/17 docusate sodium [DOK] 200 mg PO QDAY #0 06/25/17 famotidine 20 mg PO QDAY #0 06/25/17 vancomycin [Vancocin] 250 mg PO TID #0 06/25/17 Previous Rx's Medication Instructions Recorded VITAMIN B12 See Label Instructions PO .COMPLEX 08/28/17 #30 acetaminophen 325 mg capsule 650 mg PO Q4H PRN #60 cap 08/28/17 escitalopram 5 mg tablet 5 mg PO DAILY #30 tab 08/28/17 sulfamethoxazole 800 1 tab PO BID #14 tab 09/21/17 mg-trimethoprim 160 mg tablet amlodipine 2.5 mg tablet 2.5 mg PO QDAY #30 tab 11/15/17 aspirin 325 mg tablet 325 mg PO QDAY #30 tab 11/15/17 atorvastatin 20 mg tablet 20 mg PO QPM #30 tab 11/15/17 carvedilol 3.125 mg tablet 3.125 mg PO BID #60 tab 11/15/17 cholecalciferol (vitamin D3) 2,000 2,000 unit PO DAILY #30 cap 12/20/17 unit capsule levetiracetam [Keppra] 500 mg PO BID #60 tab 12/24/17 lacosamide [Vimpat] 100 mg PO BID #60 tab 01/02/18 Allergies Allergy/AdvReac Type Severity Reaction Status Date / Time No Known Drug Allergies Allergy Verified 12/24/17 07:48 Review of Systems Review of Systems All systems reviewed & are unremarkable except as noted in HPI and below and unobtainable due to mental status [facility] Medical History CVA (cerebral vascular accident) (Acute) Dementia (Acute) Hypertension (Acute) Surgical History Status post colectomy Family History Brother Diabetes mellitus Heart disease Hypertension Father Heart disease Hypertension Mother Diabetes mellitus Stroke Exam Narrative Exam Narrative: Pleasantly confused 77-year-old female responds to questions and is sleepy but easily arousable. Initial Vital Signs Initial Vital Signs: Vital Signs Temperature 97.6 F 01/10/18 18:46 Pulse Rate 57 L 01/10/18 18:46 Respiratory Rate 17 01/10/18 18:46 Blood Pressure 106/47 L 01/10/18 18:46 Pulse Oximetry 99 01/10/18 18:46 Const General: cooperative and well developed Nutritional Appearance: well nourished Orientation: alert, awake and confused [facility] Head: normocephalic and atraumatic Ears: external ears normal and TM's normal bilaterally Nose: external nose normal and No nasal discharge Face and sinus: sinuses nontender, face symmetric, no sinus tenderness and No dry mucous membranes Mouth: oral mucosae normal and moist mucous membranes Teeth and gingiva: dentition normal Throat: tonsils normal and uvula midline Eyes General: appearance normal, both eyes and all related structures Eyelids: eyelids normal Conjunctivae: conjunctivae normal Sclera: sclerae normal Pupils: PERRL EOM: EOM intact bilaterally Neck Neck: normal visual inspection, trachea midline, No lymphadenopathy, No midline deformity and No JVD Lymphatic: No lymphedema Resp Effort & Inspection: normal respiratory effort, able to speak in complete sentences, no respiratory distress and no use of accessory muscles Auscultation: clear to auscultation bilaterally, no rales, no rhonchi and no wheezes GI Inspection: non-distended Palpation: soft, no hepatosplenomegaly, No guarding, No pulsatile mass and No tender Auscultation: normal bowel sounds Skin General: no rashes or lesions noted, No jaundice and No petechiae Neuro General: alert and awake Cranial Nerves: CN's II-XI intact bilaterally Speech: speech normal Motor: muscle tone normal throughout Sensory Exam: no sensory deficits noted Course Course Narrative: No seizure activity noted during her extremely long emergency department visit by myself, son or nursing staff. She remained calm and sleepy but easily arousable. She had been given a rectal Valium earlier in the day which likely contributes to her sleepy appearance. Given her increasing frequency of seizures and frequent falls over the past few days she has clearly on suitable for discharge back to assisted living facility. We are unable to care for her at this facility given our lack of access to Neurology, however I called our hospitalist to discuss the case, but he refused stating lack of neurologic support. I made multiple attempts to reach the patient's neurologist at [facility], but he is not on-call. As the result their hospitalist also refused admission given their lack of support. We thank Kaylee frank, hospitalist Dr. Hall and neurologist Dr. Rizzo for their help in caring for this patient Orders Ordered: ED Orders 01/10/18 19:38 Basic Metabolic Panel Stat Complete Blood Count AUTO DIFF Stat Magnesium Stat Prolactin Stat 01/10/18 20:47 CT head/brain wo con Stat Discontinued Medications Ceftriaxone Sodium/Dextrose (Rocephin) 1 gm in 50 mls @ 100 mls/hr IV NOW ONE Stop: 01/10/18 22:26 Last Admin: 01/10/18 22:27 Dose: Lorazepam (Ativan) 0.5 mg IV NOW ONE Stop: 01/10/18 21:06 Last Admin: 01/10/18 21:56 Dose: Vital Signs - 8 hr 01/10/18 21:30 01/10/18 22:31 01/11/18 01:00 Pulse Rate 52 L 52 L Blood Pressure [Left Arm] 134/47 L 135/56 L 125/50 L Pulse Oximetry 99 100 MDM - Seizure Lab Data Result diagrams: 01/10/18 19:38 01/10/18 19:38 Lab Results 01/10/18 01/10/18 Range/Units 19:38 19:38 WBC 13.6 H (4.5-11.0) X10^3/uL RBC 4.08 (4.0-5.2) X10^6/uL Hgb 10.9 L (12.0-16.0) g/dL Hct 33.8 L (36-46) % MCV 83.0 (80-100) fL MCH 26.8 (26-34) PG MCHC 32.3 (30-36) % RDW 16.0 H (11.6-14.8) % Plt Count 264 (150-400) X10^3/uL Neut % (Auto) 74.8 (50-75) % Lymph % (Auto) 10.0 L (25-40) % Vernon % (Auto) 9.5 (3-14) % Eos % (Auto) 4.2 H (2-4) % Baso % (Auto) 1.5 (0-2) % Neut # (Auto) 29190 H (5260-4411) /uL Sodium 144 (137-145) mmol/L Potassium 5.0 (3.4-5.1) mmol/L Chloride 104 (98-107) mmol/L Carbon Dioxide 33 H (22-32) mmol/L BUN 29 H (7-17) mg/dL Creatinine 0.80 (0.52-1.04) mg/dL Estimated GFR > 60.0 (>60) mL/min BUN/Creatinine Ratio 36.3 H (6-22) Glucose 98 (80-110) mg/dL Calcium 9.3 (8.4-10.2) mg/dL Magnesium 2.1 (1.6-2.3) mg/dL Prolactin 20.7 H (3.0-18.6) ng/mL Discharge [facility] Impression: Weakness, Falls frequently, Seizure Prescriptions: No Action vancomycin [Vancocin] 250 MG capsule 250 mg PO TID Qty: 0 RF: 0 famotidine 20 MG tablet 20 mg PO QDAY Qty: 0 RF: 0 Lactobacillus acidophilus 1 EACH capsule 2 tab PO TID Qty: 0 RF: 0 docusate sodium [DOK] 100 MG tablet 200 mg PO QDAY Qty: 0 RF: 0 escitalopram oxalate [Lexapro] 5 mg tablet 5 mg PO DAILY Qty: 30 RF: 3 VITAMIN B12 tablet See Label Instructions PO .COMPLEX Qty: 30 RF: 3 acetaminophen 325 mg capsule 650 mg PO Q4H PRN (Reason: fever or pain) Qty: 60 RF: 3 sulfamethoxazole-trimethoprim [Bactrim DS] 800-160 mg tablet 1 tab PO BID Qty: 14 RF: 0 aspirin 325 mg tablet 325 mg PO QDAY Qty: 30 RF: 3 atorvastatin [Lipitor] 20 mg tablet 20 mg PO QPM Qty: 30 RF: 3 carvedilol [Coreg] 3.125 mg tablet 3.125 mg PO BID Qty: 60 RF: 3 amlodipine [Norvasc] 2.5 mg tablet 2.5 mg PO QDAY Qty: 30 RF: 3 cholecalciferol (vitamin D3) 2,000 unit capsule 2,000 unit PO DAILY Qty: 30 RF: 3 levetiracetam [Keppra] 500 mg tablet 500 mg PO BID Qty: 60 RF: 0 lacosamide [Vimpat] 100 mg tablet 100 mg PO BID Qty: 60 RF: 0
[2018-01-10 19:30] VITALS: BP 118/56; PULSE 54; O2SAT 99
[2018-01-10 19:44] LABS: Add Manual Diff / Slide Review NO; Basophils Percent Auto 1.5 % (0-2); Eosinophils Percent Auto 4.2 % (2-4); Hematocrit 33.8 % (36-46); Hemoglobin 10.9 g/dL (12.0-16.0); Mean Corpuscular HGB Conc 32.3 % (30-36); Mean Corpuscular Hemoglobin 26.8 PG (26-34); Monocytes Percent Auto 9.5 % (3-14); Neutrophils Absolute Auto 10100 /uL (3000-5900); Neutrophils Percent Auto 74.8 % (50-75); Platelet Count 264 X10^3/uL (150-400); Red Blood Cell Count 4.08 X10^6/uL (4.0-5.2); White Blood Cell Count 13.6 X10^3/uL (4.5-11.0)
[2018-01-10 20:02] LABS: BUN Creatinine Ratio 36.3 (6-22); Blood Urea Nitrogen 29 mg/dL (7-17); Calcium 9.3 mg/dL (8.4-10.2); Carbon Dioxide 33 mmol/L (22-32); Chloride 104 mmol/L (98-107); Estimated Glomerular Filt Rate > 60.0 mL/min (>60); Glucose 98 mg/dL (80-110); HEMOLYSIS 39 (0-50); Magnesium 2.1 mg/dL (1.6-2.3); Sodium 144 mmol/L (137-145)
[2018-01-10 20:19] LABS: Prolactin 20.7 ng/mL (3.0-18.6)
--- NOTE | 2018-01-10 20:47 | DI.CT.S_ITS ---
PROCEDURE: CT HEAD/BRAIN WO CON INDICATIONS: 16 falls 2 days, increased seizure activity TECHNIQUE: Noncontrast 4.5 mm thick angled axial sections acquired from the foramen magnum to the vertex, with coronal and sagittal reformats. For radiation dose reduction, the following was used: automated exposure control, adjustment of mA and/or kV according to patient size. COMPARISON: [facility], MR, MR STROKE, 11/02/2017, 8:30. [facility], CT, CT HEAD/BRAIN WO CON, 01/02/2018, 6:38. [facility], CT, CT HEAD/BRAIN WO CON, 12/24/2017, 8:01. FINDINGS: Image quality: Significant motion artifacts. CSF spaces: Basal cisterns are patent. No extra-axial fluid collections. The ventricles are symmetric in size and shape. Brain: Old right frontal infarct it is again noted, unchanged. No acute infarct is present. No intracranial bleeds or masses. There is cerebral volume loss for age, with resultant ventricular and sulcal prominence. There are periventricular and deep white matter chronic small vessel ischemic changes. There is intracranial internal carotid artery atherosclerosis. Skull and face: Calvarium and visualized facial bones appear intact, without suspicious lesions. Sinuses: Visualized sinuses and mastoids are clear. IMPRESSION: 1. Suboptimal examination due to significant motion artifacts. 2. Old right frontal infarction is unchanged. 3. Cerebral volume loss and chronic microvascular ischemic changes. 4. No acute intracranial abnormalities. Dictated by: Fallon Phillips M.D. on 01/10/2018 at 21:42 Approved by: Fallon Phillips M.D. on 01/10/2018 at 21:47
[2018-01-10 21:30] VITALS: BP 134/47; PULSE 52; O2SAT 99
[2018-01-10 22:31] VITALS: BP 135/56; PULSE 52; O2SAT 100
[2018-01-11 01:00] VITALS: BP 125/50
== END 2018-01-11 04:50 | disposition short-term general hospital (02) ==
PROVIDERS: Emergency Provider Emergency Medicine; Family Provider Family Medicine; PCP Family Medicine
DX: R53.1 Weakness (principal); R56.9 Unspecified convulsions; R29.6 Repeated falls
CPT/HCPCS: 36415; 70450; 80048; 83735; 84146; 85025; 93005; 99283; 99285

== ENCOUNTER → 2018-01-22 10:12 | Outpatient (CLI) | payer SELFPAY ==
[2018-01-22 12:18] LABS: Add Manual Diff / Slide Review NO; Basophils Percent Auto 0.7 % (0-2); Hematocrit 36.2 % (36-46); Hemoglobin 11.8 g/dL (12.0-16.0); Lymphocytes Percent Auto 12.1 % (25-40); Mean Corpuscular HGB Conc 32.6 % (30-36); Mean Corpuscular Hemoglobin 26.9 PG (26-34); Mean Corpuscular Volume 82.6 fL (80-100); Monocytes Percent Auto 6.4 % (3-14); Neutrophils Absolute Auto 9500 /uL (3000-5900); Neutrophils Percent Auto 77.8 % (50-75); Platelet Count 387 X10^3/uL (150-400); Red Blood Cell Count 4.38 X10^6/uL (4.0-5.2); Red Cell Distribution Width 15.9 % (11.6-14.8); White Blood Cell Count 12.2 X10^3/uL (4.5-11.0)
[2018-01-22 12:45] LABS: Alanine Aminotransferase 43 IU/L (9-52); Albumin 4.2 g/dL (3.5-5.0); Albumin Globulin Ratio 1.1 (1.0-2.8); Alkaline Phosphatase 90 U/L (38-126); Aspartate Aminotransferase 36 IU/L (14-36); Bilirubin Total 0.6 mg/dL (0.2-1.3); Blood Urea Nitrogen 24 mg/dL (7-17); Calcium 9.7 mg/dL (8.4-10.2); Carbon Dioxide 29 mmol/L (22-32); Chloride 104 mmol/L (98-107); Estimated Glomerular Filt Rate > 60.0 mL/min (>60); Globulin 3.7 g/dL (1.7-4.1); Glucose 86 mg/dL (80-110); HEMOLYSIS 25 (0-50); Potassium 4.5 mmol/L (3.4-5.1); Sodium 145 mmol/L (137-145); Total Protein 7.9 g/dL (6.3-8.2)
[2018-01-26 08:38] LABS: Lamotrigine Lamictal 0.8 mcg/mL (4.0-18.0)
== END ==
PROVIDERS: Family Provider Family Medicine; PCP Family Medicine; Visit Provider Physician Assistant
DX: R56.9 Unspecified convulsions (principal); R40.0 Somnolence
CPT/HCPCS: 80053; 80175; 80299; 85025

== ENCOUNTER → 2018-02-18 12:27 | Outpatient (CLI) | payer MEDICARE, SELFPAY ==
[2018-02-18 14:27] LABS: Add Manual Diff / Slide Review NO; Basophils Percent Auto 0.7 % (0-2); Eosinophils Percent Auto 3.7 % (2-4); Hematocrit 33.5 % (36-46); Hemoglobin 10.7 g/dL (12.0-16.0); Lymphocytes Percent Auto 11.9 % (25-40); Mean Corpuscular Hemoglobin 26.4 PG (26-34); Mean Corpuscular Volume 82.7 fL (80-100); Monocytes Percent Auto 7.7 % (3-14); Neutrophils Absolute Auto 8500 /uL (3000-5900); Platelet Count 338 X10^3/uL (150-400); Red Blood Cell Count 4.05 X10^6/uL (4.0-5.2); Red Cell Distribution Width 15.9 % (11.6-14.8); White Blood Cell Count 11.2 X10^3/uL (4.5-11.0)
[2018-02-18 15:37] LABS: Alanine Aminotransferase 23 IU/L (9-52); Albumin 3.6 g/dL (3.5-5.0); Albumin Globulin Ratio 1.1 (1.0-2.8); Alkaline Phosphatase 78 U/L (38-126); Aspartate Aminotransferase 20 IU/L (14-36); BUN Creatinine Ratio 32.5 (6-22); Bilirubin Total 0.2 mg/dL (0.2-1.3); Blood Urea Nitrogen 26 mg/dL (7-17); Calcium 9.1 mg/dL (8.4-10.2); Carbon Dioxide 27 mmol/L (22-32); Chloride 105 mmol/L (98-107); Estimated Glomerular Filt Rate > 60.0 mL/min (>60); Globulin 3.2 g/dL (1.7-4.1); Glucose 133 mg/dL (80-110); HEMOLYSIS < 15 (0-50); Sodium 142 mmol/L (137-145); Total Protein 6.8 g/dL (6.3-8.2)
[2018-02-20 11:26] LABS: Thyroid Stimulating Hormone 1.31 uIU/mL (0.47-4.68)
== END ==
PROVIDERS: Family Provider Family Medicine; PCP Family Medicine; Visit Provider Internal Medicine
DX: I50.9 Heart failure, unspecified (principal); R63.5 Abnormal weight gain
CPT/HCPCS: 36415; 80053; 83880; 84443; 85025

== ENCOUNTER → 2018-02-20 08:46 | Outpatient (REF) | payer MEDICARE, SELFPAY ==
[2018-02-22 08:22] LABS: Lamotrigine Lamictal 2.8 mcg/mL (4.0-18.0)
== END ==
LOC: LAB 08:46
PROVIDERS: Family Provider Family Medicine; PCP Family Medicine; Visit Provider Nurse Practitioner Family
DX: G40.309 Generalized idiopathic epilepsy and epileptic syndromes, not intractable, without status epilepticus (principal)
CPT/HCPCS: 36415; 80175